=== PATIENT | male | born 1950 | race African-American/Black ===

== ENCOUNTER 2016-11-04 06:40 | Observation (INO) | payer OTHER, MEDICARE ==
[~2016-11-04] VITALS: Ht 185.4 cm; Wt 126.5 kg
[~2016-11-04 06:40] MED LIST: ALEVE220 MG PO; AMLODIPINE BES2.5 MG PO; AMLODIPINE BESY10 MG PO; AMLODIPINE BESYL5 MG PO; ASCORBIC ACID500 M3 PO; ASPIRIN325 MG PO; B COMPLETE1 EACH PO; CARVEDILOL6.25 MG PO; Coumadin,Jantoven PO; DYRENIUM 50 MG50 MG PO; FENOFIBRATE54 M1 PO; FISH OIL 1,2001 EAC1 PO; FLOMAX0.4 MG PO; Ferrous Gluconate PO; GEMFIBROZIL600 MG PO; GLUCOSAMINE H1500 MG PO; HYDROCHLOROTH12.5 M3 PO; LASIX20 MG PO; LISINOPRIL40 MG PO; LOVASTATIN10 MG PO; LUMIGAN 0.50 DROP/2. BOTH EYES; LUMIGAN 0.50 DROP/22 BOTH EYES; METFORMIN HCL1000 M1 PO; METFORMIN HCL1000 MG PO; MILK OF MAGN PO; NIACIN500 M1 PO; OMEPRAZOLE40 M1 PO; OxyCONTIN PO; PRILOSEC40 MG PO; Senokot S,Pericolace PO; TRIAMTERENE-HC1 EACH PO; TYLENOL REGULA325 MG PO; Theragran PO; VITAMIN E400 UNI3 PO; ZESTRIL,PRINIV2.5 MG PO; [UNRECOGNIZED DRUG - OTHER] PO; celeBREX PO; oxyCODONE PO
[2016-11-04 07:17] LABS: EOSINOPHIL (%) 4.8 % (0-5); EOSINOPHIL COUNT 0.3 K/uL (0-0.3); IMMATURE GRANULOCYTE (%) 0.2 % (0.0-0.7); INSTRUMENT ABS NEUTROPHIL CT 3.6 K/uL; LYMPHOCYTE COUNT 1.4 K/uL (1.0-2.8); MCH 27.5 PG (29.0-34.0); MCHC 32.4 G/DL (30.0-36.0); MCV 84.8 FL (86-99); MEAN PLAT.VOLUME 9.1 uM^3 (9.0-12.4); MONOCYTE (%) 2.4 % (3-12); MONOCYTE COUNT 0.1 K/uL (0-0.8); NEUTROPHIL (%) 66.1 % (45-76); NEUTROPHIL COUNT 3.6 K/uL (1.8-6.4); PLATELET COUNT 308 K/uL (156-360); RBC DIS.WIDTH-CV 13.3 % (11.8-14.6); RED BLOOD COUNT 4.48 M/uL (4.00-5.50); WHITE BLOOD COUNT 5.4 K/uL (4.1-10.2)
[2016-11-04 07:40] LABS: TROP-I INTERPRETATION NEGATIVE; TROPONIN-I 0.01 ng/mL (0.0-0.30)
[2016-11-04 07:44] LABS: CHLORIDE 105 mEq/L (99-109); POTASSIUM 3.6 mEq/L (3.7-5.4); SODIUM 139 mEq/L (136-147)
[2016-11-04 07:46] LABS: GLUCOSE 131 mg/dL (70-99)
[2016-11-04 07:47] LABS: ANION GAP 8 MEQ/L (2-14)
[2016-11-04 07:50] LABS: GFR ESTIMATE (CALCULATED) > 59 mL/min/; UREA NITROGEN (BUN) 9 mg/dL (9-23)
[2016-11-04] MEDS ORDERED: LO-DOSE ASPIRIN81 M2 PO (08:08)
[2016-11-04] MEDS ORDERED: CINNAMON500 MG PO (08:08)
[2016-11-04] MEDS ORDERED: TAMSULOSIN HCL0.4 MG PO (08:11)
[2016-11-04] MEDS ORDERED: CARVEDILOL25 MG PO (08:11)
[2016-11-04 08:35] LABS: POINT-OF-CARE METER ID UU14100415
[2016-11-04 09:01] VITALS: BP 184/86
[2016-11-04 11:44] VITALS: BP 138/88
[2016-11-04 12:33] LABS: POINT-OF-CARE METER ID UU13113831
[2016-11-04 16:11] VITALS: BP 138/98
[2016-11-04 17:26] LABS: POINT-OF-CARE METER ID UU13113831
[2016-11-04 17:32] LABS: TROP-I INTERPRETATION NEGATIVE; TROPONIN-I 0.01 ng/mL (0.0-0.30)
[2016-11-04 20:26] VITALS: BP 173/81
[2016-11-05 00:18] VITALS: BP 172/92
[2016-11-05 00:59] LABS: TROP-I INTERPRETATION NEGATIVE; TROPONIN-I < 0.01 ng/mL (0.0-0.30)
[2016-11-05 04:25] VITALS: BP 134/69
[2016-11-05 09:00] VITALS: BP 181/90
[2016-11-05 09:27] LABS: D-DIMER ELISA 2.31 mg/L FEU (< 0.57)
[2016-11-05 12:33] VITALS: BP 178/88
[2016-11-05 12:45] LABS: POINT-OF-CARE METER ID UU13113831
[2016-11-05] MEDS ORDERED: PRAVACHOL40 MG PO (13:06)
== END 2016-11-05 14:10 | disposition home or self-care (01) ==
LOC: EME 06:40 → EDOF 07:59 → 5WEST 07:59 → EDOF 07:59 → 5WEST 08:45
PROVIDERS: Emergency Medicine; Hospitalist; Internal Medicine; Physician Assistant Medical
DX: R07.89 Other chest pain (principal); I10 Essential (primary) hypertension; E78.5 Hyperlipidemia, unspecified; E11.9 Type 2 diabetes mellitus without complications; R59.0 Localized enlarged lymph nodes; Z87.891 Personal history of nicotine dependence
CPT/HCPCS: 71010; 71275; 80048; 82948; 83880; 84484; 85025; 85379; 93005; 93306; 93970; 99281; 99285; G0378; J1650; J1815

== ENCOUNTER → 2016-12-17 | Outpatient (CLI) | payer OTHER, MEDICARE ==
[~2016-12-17] VITALS: Ht 185.4 cm; Wt 122.9 kg
[~2016-12-17] MED LIST changes: +CARVEDILOL25 MG PO; +CINNAMON500 MG PO; +FORTAMET1000 M1 PO; +LO-DOSE ASPIRIN81 M2 PO; +PRAVACHOL40 MG PO; +PROTONIX40 MG PO; +TAMSULOSIN HCL0.4 MG PO
[2016-12-17 13:51] LABS: POINT-OF-CARE METER ID UU13113694
== END | disposition home or self-care (01) ==
LOC: AMB 12:47
PROVIDERS: Internal Medicine Pulmonary Disease
DX: R59.0 Localized enlarged lymph nodes (principal)
CPT/HCPCS: 82948; 85027; 85610; 85730; 88173; J0461; J2175; J2250; J2550; J3010